=== PATIENT | female | born 1950 | race Caucasian/White ===

== ENCOUNTER 2017-04-07 10:28 | Emergency (ER) | payer MEDICARE, OTHER ==
[~2017-04-07] VITALS: Ht 157.5 cm; Wt 90.0 kg
[~2017-04-07 10:28] MED LIST: ATOR10 PO; LOVA20TA PO; TRAM50 PO
[2017-04-07 10:30] VITALS: BP 223/109; PULSE 114; RESP 18; TEMP 98.6; O2SAT 97
--- NOTE | 2017-04-07 11:43 | PD ---
HPI Chief Complaint: Foreign Body Time Seen by Provider: 11:11 Travel History International Travel<30 days: No Contact w/Intl Traveler<30days: No Traveled to known affect area: No History of Present Illness HPI 66 year old female here for evaluation of mild throat discomfort after she swallowed a toothbrush bristle 3 days ago. she reports she has a FB sensation in the throat. she denies fever or chills. She denies difficulty swallowing or breathing. symptoms severity is mild. no alleviating factors. PFSH Past Medical History Arthritis: Yes Diminished Hearing: No Social History Alcohol Use: No Tobacco Use: No (quit 1997) Substance Use: No Allergies-Medications (Allergen,Severity, Reaction): Coded Allergies: No Known Allergies (Verified , 10/26/15) Reported Meds & Prescriptions Reported Meds & Active Scripts Active Reported Buspirone (Buspirone HCl) 10 Mg Tab 10 Mg PO BID Lovastatin 20 Mg Tab 20 Mg PO DAILY Review of Systems Except as stated in HPI: all other systems reviewed are Neg Physical Exam Narrative GENERAL: SKIN: Warm and dry. HEAD: Normocephalic. EYES: No scleral icterus. No injection or drainage. Throat: pharynx is without erythema. no FB visualized. uvula midline. NECK: Supple, trachea midline. No JVD or lymphadenopathy. CARDIOVASCULAR: Regular rate and rhythm without murmurs, gallops, or rubs. RESPIRATORY: Breath sounds equal bilaterally. No accessory muscle use. GASTROINTESTINAL: Abdomen soft, non-tender, nondistended. MUSCULOSKELETAL: No cyanosis, or edema. BACK: Nontender without obvious deformity. No CVA tenderness. Data Data Last Documented VS Vital Signs Date Time Temp Pulse Resp B/P (MAP) Pulse Ox O2 Delivery O2 Flow Rate FiO2 04/07/17 11:45 69 15 186/88 (120) 99 Room Air 04/07/17 10:30 98.6 MDM Medical Decision Making Medical Screen Exam Complete: Yes Emergency Medical Condition: Yes Differential Diagnosis esophageal FB, esophageal abrasion, GERD Narrative Course 66 year old female here for evaluation of possible ingestion of a tooth brush bristle 3 days ago. She has a FB sensation in her throat. She denies fever, chills, difficulty swallowing or shortness of breath. She is able to eat and drink without difficulty. Patient was noted to be mildly tachycardic and hypertensive on arrival. She reports this is because she is "nervous". Her repeat vitals once in the room where heart rate 70, blood pressure 189/88, respirations 18. She was encouraged to follow up with her primary care doctor Dr. Marmolejo for blood pressure recheck. Diagnosis Primary Impression: Sore throat Referrals: Pito Dickey MD Additional Instructions: Take the Protonic as prescribed. Make a follow-up appointment with GI. Return to the emergency department if he developed fever, chills, increasing pain, difficulty swallowing or shortness breath. Your blood pressure was noted to be elevated at the emergency department today this should be rechecked department for follow-up with her primary doctor. Scripts Pantoprazole (Protonix) 20 Mg Tab 20 MG PO DAILY for Reflux, #30 TAB 0 Refills Prov: Keyonna Dougherty 04/07/17 Disposition: 01 DISCHARGE HOME Condition: Stable Keyonna Dougherty Apr 07, 2017 11:43
[2017-04-07 11:45] VITALS: BP 186/88; PULSE 69; RESP 15; O2SAT 99
[2017-04-07] MEDS ORDERED: BUSP10TA PO (11:53)
[2017-04-07] MEDS ORDERED: LOVA20TA PO (11:53)
[2017-04-07] MEDS ORDERED: PANT20 PO (11:57)
[2017-04-07] MEDS ORDERED: PROZ20CA11 PO (12:11)
== END 2017-04-07 12:22 | disposition home or self-care (01) ==
LOC: NEPD 10:28
DX: J02.9 Acute pharyngitis, unspecified (principal); M19.90 Unspecified osteoarthritis, unspecified site
CPT/HCPCS: 99283